=== PATIENT | female | born 1955 | race Caucasian/White ===

== ENCOUNTER 2024-07-12 11:18 | Emergency (ER) | payer OTHER, SELFPAY ==
[2024-07-12 11:20] VITALS: BP 151/78
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
[2024-07-12] MEDS: VIBRAMYCIN 100 MG PO (12:32)
== END 2024-07-12 13:04 | disposition home or self-care (01) ==
LOC: EMR 11:18
PROVIDERS: EMERGENCY PHYSICIAN Emergency Medicine
DX: S81.801A Unspecified open wound, right lower leg, initial encounter (principal); L08.9 Local infection of the skin and subcutaneous tissue, unspecified; M79.89 Other specified soft tissue disorders; V40.5XXA Car driver injured in collision with pedestrian or animal in traffic accident, initial encounter; Y92.410 Unspecified street and highway as the place of occurrence of the external cause; R03.0 Elevated blood-pressure reading, without diagnosis of hypertension; M19.90 Unspecified osteoarthritis, unspecified site
CPT/HCPCS: 99283; 87070; 87205

== ENCOUNTER → 2024-07-15 12:43 | Outpatient (REF) | payer OTHER, SELFPAY | LOC: WOUND 12:43 | PROVIDERS: ATTENDING PHYSICIAN Surgery | DX: L97.812 Non-pressure chronic ulcer of other part of right lower leg with fat layer exposed (principal); F17.200 Nicotine dependence, unspecified, uncomplicated | CPT/HCPCS: 11042; 99203 ==

== ENCOUNTER → 2024-07-22 10:57 | Outpatient (REF) | payer OTHER, SELFPAY | LOC: WOUND 10:57 | PROVIDERS: ATTENDING PHYSICIAN Surgery | DX: L97.812 Non-pressure chronic ulcer of other part of right lower leg with fat layer exposed (principal); F17.200 Nicotine dependence, unspecified, uncomplicated | CPT/HCPCS: 11042 ==

== ENCOUNTER → 2024-07-30 11:12 | Outpatient (REF) | payer OTHER, SELFPAY | LOC: WOUND 11:12 | PROVIDERS: ATTENDING PHYSICIAN Surgery | DX: L97.812 Non-pressure chronic ulcer of other part of right lower leg with fat layer exposed (principal); F17.200 Nicotine dependence, unspecified, uncomplicated | CPT/HCPCS: 11042 ==

== ENCOUNTER → 2024-08-13 11:12 | Outpatient (REF) | payer OTHER, SELFPAY | LOC: WOUND 11:12 | PROVIDERS: ATTENDING PHYSICIAN Surgery | DX: L97.812 Non-pressure chronic ulcer of other part of right lower leg with fat layer exposed (principal); F17.200 Nicotine dependence, unspecified, uncomplicated | CPT/HCPCS: 11042 ==

== ENCOUNTER → 2024-08-27 10:55 | Outpatient (REF) | payer OTHER, SELFPAY | LOC: WOUND 10:55 | PROVIDERS: ATTENDING PHYSICIAN Surgery | DX: L97.812 Non-pressure chronic ulcer of other part of right lower leg with fat layer exposed (principal); F17.200 Nicotine dependence, unspecified, uncomplicated | CPT/HCPCS: 11042 ==

== ENCOUNTER → 2024-09-10 10:59 | Outpatient (REF) | payer OTHER, SELFPAY | LOC: WOUND 10:59 | PROVIDERS: ATTENDING PHYSICIAN Surgery | DX: L97.812 Non-pressure chronic ulcer of other part of right lower leg with fat layer exposed (principal); F17.200 Nicotine dependence, unspecified, uncomplicated | CPT/HCPCS: 99212 ==